=== PATIENT | female | born 1990 | race Caucasian/White ===

== ENCOUNTER 2023-06-11 13:43 | Oncology outpatient (recurring) (ONCR) | payer OTHER, SELFPAY ==
[2023-06-11 14:28] VITALS: BP 124/75; PULSE 89; RESP 16; TEMP 36.8; O2SAT 99
[2023-06-11] MEDS: NATALIZUMAB IV (14:47)
[2023-06-11] MEDS: SODIUM CHLORIDE 0.9% IV (14:47)
[2023-06-11 15:40] VITALS: BP 95/62; PULSE 81; RESP 16; TEMP 36.8; O2SAT 99
== END 2023-06-15 23:59 | disposition home or self-care (01) ==
PROVIDERS: PCP Family Medicine; Visit Provider Psychiatry & Neurology Neurology
DX: G35 Multiple sclerosis (principal)
CPT/HCPCS: 96413; J2323

== ENCOUNTER 2023-07-25 09:44 | Oncology outpatient (recurring) (ONCR) | payer OTHER, SELFPAY ==
[2023-07-25] MEDS: NATALIZUMAB IV (10:55)
[2023-07-25] MEDS: SODIUM CHLORIDE 0.9% IV (10:55)
[2023-07-25 11:54] VITALS: BP 105/66; PULSE 77; RESP 16; O2SAT 97
== END 2023-08-14 23:59 | disposition home or self-care (01) ==
PROVIDERS: PCP Family Medicine; Visit Provider Psychiatry & Neurology Neurology
DX: G35 Multiple sclerosis (principal)
CPT/HCPCS: 96365; J2323

== ENCOUNTER 2023-09-05 09:15 | Oncology outpatient (recurring) (ONCR) | payer OTHER, SELFPAY ==
[2023-09-05 09:37] VITALS: BP 113/69; PULSE 72; RESP 16; TEMP 36.6; O2SAT 100
[2023-09-05] MEDS: NATALIZUMAB IV (10:23)
[2023-09-05] MEDS: SODIUM CHLORIDE 0.9% IV (10:23)
[2023-09-05 11:28] VITALS: BP 103/66; PULSE 67; RESP 16; TEMP 36.6; O2SAT 98
== END 2023-09-14 23:59 | disposition home or self-care (01) ==
PROVIDERS: PCP Family Medicine; Visit Provider Psychiatry & Neurology Neurology
DX: G35 Multiple sclerosis (principal)
CPT/HCPCS: J2323

== ENCOUNTER 2023-10-17 09:18 | Oncology outpatient (recurring) (ONCR) | payer OTHER, SELFPAY ==
[2023-10-17 09:28] VITALS: BP 123/81; PULSE 72; RESP 16; TEMP 36.7; O2SAT 99
[2023-10-17] MEDS: NATALIZUMAB IV (10:01)
[2023-10-17] MEDS: SODIUM CHLORIDE 0.9% IV (10:01)
[2023-10-17 11:15] VITALS: BP 109/69; PULSE 65; RESP 16; TEMP 36.8; O2SAT 98
== END 2023-11-14 23:59 | disposition home or self-care (01) ==
PROVIDERS: PCP Family Medicine; Visit Provider Psychiatry & Neurology Neurology
DX: G35 Multiple sclerosis (principal)
CPT/HCPCS: 96413; J2323

== ENCOUNTER 2023-11-28 09:29 | Oncology outpatient (recurring) (ONCR) | payer OTHER, SELFPAY ==
[2023-11-28 09:39] VITALS: BP 118/76; PULSE 63; TEMP 36.7; O2SAT 98
[2023-11-28] MEDS: SODIUM CHLORIDE 0.9% IV (10:05)
[2023-11-28] MEDS: NATALIZUMAB IV (10:05)
[2023-11-28 11:10] VITALS: BP 118/65; PULSE 69; RESP 17; TEMP 36.7; O2SAT 99
== END 2023-12-14 23:59 | disposition home or self-care (01) ==
PROVIDERS: PCP Family Medicine; Visit Provider Psychiatry & Neurology Neurology
DX: G35 Multiple sclerosis (principal)
CPT/HCPCS: 96413; J2323

== ENCOUNTER 2024-01-09 09:06 | Oncology outpatient (recurring) (ONCR) | payer OTHER, SELFPAY ==
[2024-01-09 09:49] VITALS: BP 116/77; PULSE 71; RESP 16; TEMP 36.8; O2SAT 98
[2024-01-09] MEDS: NATALIZUMAB IV (10:12)
[2024-01-09] MEDS: SODIUM CHLORIDE 0.9% IV (10:12)
[2024-01-09 11:13] VITALS: BP 118/69; PULSE 63; RESP 16; TEMP 36.8; O2SAT 99
== END 2024-01-14 23:59 | disposition home or self-care (01) ==
PROVIDERS: PCP Family Medicine; Visit Provider Psychiatry & Neurology Neurology
DX: G35 Multiple sclerosis (principal); Z79.899 Other long term (current) drug therapy
CPT/HCPCS: 96413; J2323

== ENCOUNTER 2024-02-20 09:19 | Oncology outpatient (recurring) (ONCR) | payer OTHER, SELFPAY ==
[2024-02-20 10:06] VITALS: BP 133/87; PULSE 66; RESP 16; TEMP 37.1; O2SAT 99
[2024-02-20] MEDS: NATALIZUMAB IV (10:47)
[2024-02-20] MEDS: SODIUM CHLORIDE 0.9% IV (10:47)
[2024-02-20 11:56] VITALS: BP 113/71; PULSE 65; RESP 17; TEMP 36.2; O2SAT 97
== END 2024-03-15 23:59 | disposition home or self-care (01) ==
PROVIDERS: PCP Family Medicine; Visit Provider Psychiatry & Neurology Neurology
DX: Z79.899 Other long term (current) drug therapy (principal); G35 Multiple sclerosis
CPT/HCPCS: 96413; J2323